=== PATIENT | female | born 1995 | race Caucasian/White ===

== ENCOUNTER 2020-03-02 19:03 | Emergency (ER) | payer OTHER ==
[~2020-03-02] VITALS: Ht 157.5 cm; Wt 56.2 kg
--- NOTE | 2020-03-02 19:45 | NUR ---
ER Dr. Robledo in waiting room examining patient.
--- NOTE | 2020-03-02 19:50 | NUR ---
Jennie morin in ED - 03/02/20 at 2328 by DORITA FRANCOIS Robledo in triage examining patient.
--- NOTE | 2020-03-02 19:50 | NUR ---
Jennie morin in ED - 03/02/20 at 2219 by DORITA FRANCOIS Robledo in tent examining patient.
[2020-03-02 19:54] VITALS: BP_SYST 125
--- NOTE | 2020-03-02 19:59 | NUR ---
Patient triaged and placed in waiting room. VSS and patient appears in no acute distress at this time. Awaiting available bed, and MD notified of need for MSE.
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
[2020-03-02 20:18] LABS: BASOPHILS % (AUTO) 0.7 % (0.0-2.0); EOSINOPHILS % (AUTO) 0.5 % (0.0-4.0); LYMPHOCYTES # (AUTO) 2.5 K/uL (1.0-5.5); LYMPHOCYTES % (AUTO) 36.4 % (20.5-51.5); MEAN CORPUSCULAR HEMOGLOBIN 28 pg (27-31); MONOCYTES # (AUTO) 0.7 K/uL (0.0-1.0); NEUTROPHILS # (AUTO) 3.6 K/uL (1.8-7.7); WHITE BLOOD COUNT (AUTO) 6.9 K/uL (4.8-10.8)
[2020-03-02 20:26] LABS: HEMATOCRIT 36.3 % (36-48); HEMOGLOBIN 12.3 g/dL (12.0-16.0); MEAN CORPUSCULAR HGB CONC 34 % (32-36); MEAN CORPUSCULAR VOLUME 82 fL (79.0-98.0); MONOCYTES % (AUTO) 9.9 % (1.7-9.3); NEUTROPHILS % (AUTO) 52.5 % (40.0-70.0); PLATELET COUNT (AUTO) 307 K/uL (130-430); RED BLOOD CELL COUNT(AUTO) 4.42 MIL/uL (4.2-6.2); RED CELL DISTRIBUTION WIDTH 13.5 % (9.0-15.0)
[2020-03-02 20:31] LABS: CALCIUM 8.3 mg/dL (8.4-11.0); CREATININE 0.61 mg/dL (0.55-1.30); POTASSIUM 3.4 mmol/L (3.5-5.1)
[2020-03-02 20:37] LABS: ALBUMIN 4.4 g/dL (3.4-4.8); TOTAL BILIRUBIN 0.3 mg/dL (0.0-1.0)
--- NOTE | 2020-03-02 23:27 | NUR ---
Patient vital signs are within normal limits. Patient sent back to waiting room.
[2020-03-03] MEDS ORDERED: ONDANSETRON HCL 4 MG/2 ML VIAL IVP ONE (00:30)
--- NOTE | 2020-03-03 00:43 | NUR ---
Patient given written and verbal discharge instructions and verbalizes understanding. ER MD discussed with patient the results and treatment provided. Patient in stable condition. ID arm band removed. Rx of ibuprofen,cmethocarbamol given. Patient educated on pain management and to follow up with PMD. Pain Scale 6/10,MD is aware. Opportunity for questions provided and answered. Medication side effect fact sheet provided.
[2020-03-03] MEDS: ONDANSETRON HCL 4 MG/2 ML VIAL IM ONE (00:46)
[2020-03-03] MEDS: KETOROLAC TROMETHAMINE 30 MG VIAL IM ONE (00:47)
[2020-03-03 00:48] VITALS: BP_SYST 134
== END 2020-03-03 00:43 | disposition home or self-care (01) ==
LOC: SED 19:03
DX: S13.9XXA Sprain of joints and ligaments of unspecified parts of neck, initial encounter (principal); M25.512 Pain in left shoulder; V49.40XA Driver injured in collision with unspecified motor vehicles in traffic accident, initial encounter; Y93.89 Activity, other specified; Y92.89 Other specified places as the place of occurrence of the external cause; Y99.8 Other external cause status
CPT/HCPCS: 36415; 70450; 72125; 73030; 76376; 80053; 81025; 85025; 96372; 99285; J1885; J2405